=== PATIENT | female | born 1950 | race Caucasian/White ===

== ENCOUNTER 2018-04-20 07:13 | Day surgery (SDC) | payer MEDICARE, BC ==
[~2018-04-20 07:13] MED LIST: LIDOCAINE 2% (SDV) 5 ML INJ
[2018-04-20] MEDS: SOD CHLORIDE 0.9% 1,000 ML IV (08:38)
[2018-04-20] MEDS: VANCOMYCIN 1 GM (PMX) 250 ML IVPB (08:39)
[2018-04-20 08:53] LABS: ADD MAN DIFF? NO
[2018-04-20 09:01] LABS: BASOPHILS % 0.8 % (0.0-2.0); EOSINOPHILS # 0.2 10^3/ul (0.0-0.5); EOSINOPHILS % 4.1 % (0.0-7.0); HEMATOCRIT 36.4 % (37.0-47.0); HEMOGLOBIN 12.3 g/dl (12.0-16.0); LYMPHOCYTES # 1.3 10^3/ul (0.8-2.9); LYMPHOCYTES % 33.4 % (15.0-51.0); MEAN CORPUSCULAR HEMOGLOBIN 30.4 pg (29.0-33.0); MEAN CORPUSCULAR HGB CONC 33.8 g/dl (32.0-37.0); MEAN CORPUSCULAR VOLUME 89.9 fl (82.0-101.0); MEAN PLATELET VOLUME 12.1 fl (7.4-10.4); MONOCYTE # 0.4 10^3/ul (0.3-0.9); MONOCYTES % 10.1 % (0.0-11.0); NEUTROPHILS % 51.6 % (39.0-77.0); PLATELET COUNT 159 10^3/UL (140-415); RED BLOOD COUNT 4.05 10^6/ul (4.20-5.40); RED CELL DISTRIBUTION WIDTH 13.5 % (11.5-14.5)
[2018-04-20 09:04] LABS: HOLD TRANSMISSIONS 1
[2018-04-20 09:06] LABS: WHITE BLOOD COUNT 3.9 10^3/ul (4.8-10.8)
[2018-04-20 09:16] LABS: INR 0.79; PT RATIO 0.9
[2018-04-20 09:29] LABS: ALANINE AMINOTRANSFERASE 34 IU/L (13-69); ALBUMIN 4.6 g/dl (3.3-4.9); ALBUMIN/GLOBULIN RATIO 1.53; ALKALINE PHOSPHATASE 67 IU/L (42-121); ANION GAP 19 (8-16); ASPARTATE AMINO TRANSFERASE 34 IU/L (15-46); BILIRUBIN,INDIRECT 0.8 mg/dl (0-1.1); BILIRUBIN,TOTAL 0.8 mg/dl (0.2-1.3); BLOOD UREA NITROGEN 19 mg/dl (7-20); CALCIUM 9.6 mg/dl (8.4-10.2); CARBON DIOXIDE 25 mmol/L (21-31); CHLORIDE 102 mmol/L (97-110); CREATININE 0.71 mg/dl (0.44-1.00); GLUCOSE 88 mg/dl (70-220); POTASSIUM 4.3 mmol/L (3.5-5.1); SODIUM 142 mmol/L (135-144); TOTAL PROTEIN 7.6 g/dl (6.1-8.1)
[2018-04-20] MEDS ORDERED: BUPIVACAINE 0.25% (MPF) 30 ML INJ (09:32)
[2018-04-20] MEDS ORDERED: ROCURONIUM 50 MG INJ (09:42)
[2018-04-20] MEDS ORDERED: NEOSTIGMINE 3 MG/3 ML SYRINGE (09:42)
[2018-04-20] MEDS ORDERED: PROPOFOL 20 ML (09:42)
[2018-04-20] MEDS ORDERED: GLYCOPYRROLATE 0.4 MG INJ (09:42)
[2018-04-20] MEDS ORDERED: FENTAnyl 50 MCG/ML VIAL (09:43)
[2018-04-20] MEDS ORDERED: MIDAZOLAM 1 MG/ML 2 ML INJ (09:43)
[2018-04-20] MEDS ORDERED: DEXAMETHASONE 4 MG/ML 1 ML INJ (09:44)
[2018-04-20] MEDS ORDERED: ONDANSETRON 4 MG INJ ×2 (09:45→11:23)
[2018-04-20] MEDS ORDERED: hydrALAzine 20 MG INJ (10:27)
[2018-04-20] MEDS ORDERED: SUCCINYLCHOLINE CHLORIDE 100 MG/5 ML SYG IV (10:31)
[2018-04-20] MEDS ORDERED: HYDROmorphONE 1 MG/5 ML IV SYRINGE IV ×3 (11:22→11:30)
[2018-04-20] MEDS ORDERED: MEPERIDINE 25 MG INJ IV (11:30)
[2018-04-20] MEDS ORDERED: ONDANSETRON 4 MG INJ IV (11:30)
[2018-04-20] MEDS ORDERED: DIPHENHYDRAMINE 50 MG INJ IV (11:30)
[2018-04-20] MEDS ORDERED: KETOROLAC 15 MG INJ IV (11:30)
[2018-04-20] MEDS ORDERED: LABETALOL HCL 20MG INJ IV (11:30)
[2018-04-20] MEDS ORDERED: OXYCODONE/ACETAMINOPHEN (5/325) TAB PO ×2 (11:30)
[2018-04-20] MEDS ORDERED: FENTAnyl 50 MCG/ML VIAL IV ×2 (11:30)
[2018-04-20] MEDS ORDERED: morphine (1 MG/ML) 10ML SYRINGE IV ×2 (11:30)
[2018-04-20] MEDS: HYDROmorphONE 1 MG/5 ML IV SYRINGE IV (11:31)
[2018-04-20] MEDS: BUPIVACAINE 0.5%/EPI (SDV) 30 ML INJ (14:08)
== END 2018-04-20 16:08 | disposition home or self-care (01) ==
LOC: SDS 07:13
DX: D17.22 Benign lipomatous neoplasm of skin and subcutaneous tissue of left arm (principal); I10 Essential (primary) hypertension; E03.9 Hypothyroidism, unspecified
CPT/HCPCS: 21554; 71045; 80053; 85025; 85610; 85730; 88307; 93005